=== PATIENT | male | born 1950 | race Caucasian/White ===

== ENCOUNTER 2021-02-15 19:51 | Emergency (ER) | payer OTHER, SELFPAY ==
[2021-02-15 19:52] VITALS: BP 165/105; PULSE 79; RESP 16; TEMP 36.8; O2SAT 97; BMI 29.7
--- NOTE | 2021-02-15 20:15 | CT_ITS ---
STUDY: CT BRAIN WITHOUT CONTRAST REASON FOR EXAM: Male, 70 years old. Fall trauma on ice head injury headache RADIATION DOSAGE (If Supplied By Facility): CTDIvol = ( 44.99 ) mGy, DLP = ( 812.98 ) mGycm TECHNIQUE: Transaxial CT imaging of the brain was performed without administration of intravenous contrast material. Individualized dose optimization techniques were used for this CT. COMPARISON: No relevant priors. FINDINGS: Brain parenchyma is without focal lesions, mass effect, acute intracranial hemorrhage, extra parenchymal fluid collections, hydrocephalus or herniation. There is mild chronic small vessel ischemic disease. The skull is intact. CT/Brain/Head without Contrast IMPRESSION: 1. No acute abnormality. 2. Mild chronic white matter ischemic disease. Electronically Signed: Kristina Fisher MD at 20:46 EST Tel , Service support ,
--- NOTE | 2021-02-15 20:15 | EKG12_ITS ---
Test Reason : HEAD INJ Blood Pressure : / mmHG Vent. Rate : 073 BPM Atrial Rate : 340 BPM P-R Int : 000 ms QRS Dur : 082 ms QT Int : 394 ms P-R-T Axes : 000 035 025 degrees QTc Int : 434 ms Accelerated Junctional rhythm Abnormal ECG Confirmed by JANEL CELAYA ([id number]), publication editor TIFFANY OJEDA ([id number]) on 02/16/2021 11:09:38 AM Referred By: RICHARD Confirmed By:JANEL CELAYA
--- NOTE | 2021-02-15 20:15 | RAD_ITS ---
INDICATION: chest pain EXAMINATION/TECHNIQUE: X-RAY - XR Chest 1 View COMPARISON: None. FINDINGS: LIFE-SUPPORT AND LINES: 1. None HEART AND VESSELS: The cardiac silhouette, pulmonary vasculature have normal appearance. No evidence of congestive failure. LUNGS AND PLEURAL SPACES: Lungs are clear. No focal infiltrate, consolidation or effusions. No evidence of pneumothorax. There is shallow inspiration and mild atelectasis MEDIASTINUM AND HILAR REGIONS: No masses adenopathy noted. No areas of calcification. Visualized upper airway is normal in position. BONY ELEMENTS: No acute bony changes noted. RAD/Chest 1 View (Portable) IMPRESSION: 1. No evidence of acute cardiopulmonary process. Shallow inspiration mild basilar atelectasis. Electronically Signed: Anish Almazan MD at 20:58 EST Tel , Service support ,
--- NOTE | 2021-02-15 20:16 | EDS_ITS ---
HPI History of Present Illness Chief Complaint: Head Injury Informant: patient, spouse/S.O. and EMS Onset/Context/Timing Onset: Today and Hours Location: Head injury with LOC and amnesia. Current Severity: Mild Maximum Severity: Moderate Associated Symptoms Associated Symptoms: Positive for Loss of consciousness and Amnesia; Negative for Parasthesias, Weakness, Loss of function and Inability to ambulate Narrative Narrative: 70-year-old male has had bilateral hip replacements. Denies chronic medical problems. Today was resting adult hockey games. He had done 3 games. During the fourth game he was found down on the ice. It was unwitnessed. He is amnestic to the event. is with him now but she wasn't at the game. Paramedics and people at the ice arena never actually saw him go down. Patient denies any recent illness. He denies any nausea vomiting or diarrhea recently. He denies any syncope or palpitations. He has never had a syncopal event. Prior similar symptoms: No Recent Illness/Hospitalization: No PFSH PFSH Medical History Hip replacement planned Home Medications NK 02/15/21 [History Last Taken Unknown] Allergy/AdvReac Type Severity Reaction Status Date / Time No Known Allergies Allergy Verified 02/15/21 19:52 Social History Smoking Status: Never smoker ROS ROS ED ROS Narrative Denies recent illness. Review of Systems ROS Unobtainable: Denies due to encephalopathy Constitutional Constitutional ED: Denies fever(s) Eyes Eyes: Denies change in vision ENT ENT ED: Denies ear pain Cardiovascular Cardiovascular: Denies chest pain Respiratory/Chest Respiratory/Chest: Denies dyspnea Gastrointestinal Gastrointestinal: Denies abdominal pain, diarrhea, nausea or vomiting Genitourinary Genitourinary ED: Denies dysuria Musculoskeletal Musculoskeletal: Denies myalgias Integumentary Denies rash Neurologic Neurologic: Denies headache(s) Psychiatric Psychiatric: Denies depression Endocrine Endocrinology: Denies polyuria Hematologic/Lymphatic Hematologic/Lymphatic: Denies easy bruising Allergic/Immunologic Allergic/Immunologic ED: Denies urticaria EXAM Physical Exam Narrative Exam Narrative: 70-year-old male showing a stated age vital signs are stable afebrile. Pulse ox 97% on room air no signs hypoxia. HEENT exam is an abrasion/superficial laceration to the right cheek. Pupils round reactive light. Extra motions are intact. Dentition intact. TMs are unremarkable. There is no signs of trauma on his scalp or back of his head. C-spine trachea nontender normal range of motion to his neck. Lungs are clear. Heart regular rate and rhythm no murmur. Chest wall nontender. Abdomen soft nontender. Pelvic girdle intact. Patient moving all 4 extremities are nontender. There are neurovascularly intact with normal range of motion and psychotherapist counselor strength. Back nontender. Neurologically he is amnestic to the event but he is awake and alert. He is answering questions. His GCS is 15. He knows day, month, year and president. He is acting concussed.. Const Vital Signs: 02/15/21 19:52 02/15/21 19:57 02/15/21 20:23 Temperature 98.3 F Temperature Source Oral Pulse Rate 79 Respiratory Rate 16 Respiratory Effort Normal Non-Labored Respiratory Depth Normal Respiratory Pattern Normal Blood Pressure 165/105 H Blood Pressure Mean 125 Pulse Ox 97 Oxygen Delivery Method Room Air Room Air 02/15/21 20:59 02/15/21 22:02 Temperature Temperature Source Pulse Rate 70 73 Respiratory Rate 16 19 H Respiratory Effort Respiratory Depth Respiratory Pattern Blood Pressure 149/108 H 152/109 H Blood Pressure Mean 121 123 Pulse Ox 97 96 Oxygen Delivery Method Room Air Room Air Positive well nourished and well developed; Negative for obese, cachectic, contractures or unkempt General Appearance ED: well developed and NAD; Negative for unkempt, cachectic or contractures Nutritional Appearance: Negative for cachectic or obese HEENT Reports TM's clear trauma and tenderness Tympanic Membrane ED: Yes TM's clear Eyes PERRL and EOMs intact bilaterally Neck full ROM General: Negative for tenderness Chest Wall inspection of chest normal and palpation of chest normal Resp normal respiratory effort and clear to auscultation bilaterally Auscultation: Negative for rales, rhonchi or wheezes Cardio regular rhythm, S1 normal heart sound, S2 normal heart sound and no murmurs Rate: regular rate GI normal to inspection, nondistended, normoactive bowel sounds, non-tender, non- distended and no masses Auscultation: normoactive bowel sounds Palpation: soft; Negative for tender or guarding Back/Spine normal to inspection and no thoracic nor lumbar tenderness General Back: Negative for CVA tenderness Extremity normal to inspection and full ROM General Extremety ED: Negative for deformity, edema or tenderness General Extremity: Negative for deformity or edema Neuro oriented x3, CN's II-XII intact bilaterally, moves all extremities and no focal motor deficits [place] Coma Scale: document GCS findings Spontaneous Obeys Commands Oriented 15 Sensorium / Orientation: alert, oriented to person, oriented to place and oriented to time; Negative for lethargic or stuporous Motor Exam: strength 5/5 throughout Psych mental status grossly normal and thought process normal Appearance: Negative for unkempt Skin no rashes or lesions noted Skin Narrative: Abrasion right cheek. MDM MDM MDM Narrative Medical decision making narrative: 70-year-old male was wrestling hockey games when he went down. It was unwitnessed. He has an obvious head injury and is concussed but the question is that something happened to him before he went down. He has a normal exam will be worked up for possible syncope and head injury with CAT scan and cardiac work-up. Repeat exam patient is doing well at 1020. Exam is normal. Neurologic exam is normal. He and I and his discussed his test results. Currently he is in a sinus rhythm on the monitor. He also got additional information from the score keeper at the ice rink and he was skating backwards and this happened and was tripped accidentally when he got caught up with another player. So does not seem like he had a syncopal episode at all, he just fell to the ice and got knocked out. We discussed head injury instructions. Lab Data Attestation: I reviewed the patient's lab results. Lab results narrative: CBC White count of 6. Hemoglobin 15. Electrolytes gap of 6 BUN 22 creatinine 0.86. Glucose 112. Troponin XIX. Labs: Laboratory Results - last 24 hr 02/15/21 02/15/21 20:00 20:00 WBC 6.8 RBC 4.94 Hgb 15.0 Hct 43.9 MCV 88.9 MCH 30.4 MCHC 34.2 RDW Std Deviation 38.7 RDW Coeff of [place] 11.9 Plt Count 231 MPV 10.0 Immature Gran % (Auto) 0.300 Neut % (Auto) 55.9 Lymph % (Auto) 30.4 [place] % (Auto) 11.1 H Eos % (Auto) 1.9 Baso % (Auto) 0.4 Absolute Neuts (auto) 3.8 Absolute Lymphs (auto) 2.05 Nucleated RBC % 0 Sodium 139 Potassium 4.0 Chloride 108 H Carbon Dioxide 25.0 Anion Gap 6 BUN 22 H Creatinine 0.86 Estim Creat Clear Calc 83.70 Est GFR (MDRD) Af Amer 114 Est GFR (MDRD) Non-Af 94 BUN/Creatinine Ratio 25.7 H Glucose 112 H Calcium 8.9 Troponin I High Sens 19 Radiography Diagnostic Testing: Clinical Impression(s) from Imaging Studies Brain CT 02/15/21 20:15 IMPRESSION: 1. No acute abnormality. 2. Mild chronic white matter ischemic disease. Electronically Signed: Kirstina Fisher MD at 20:46 EST Tel , Service support , Chest X-Ray 02/15/21 20:15 IMPRESSION: 1. No evidence of acute cardiopulmonary process. Shallow inspiration mild basilar atelectasis. Electronically Signed: Anish Almazan MD at 20:58 EST Tel , Service support , Chest x-ray portable 1 view shows no acute abnormality. Normal cardiac silhouette and mediastinum. Interpreted by myself and radiologist. CT of the brain read by the radiologist and reviewed by me shows no acute abnormality. EKG Initial EKG: Attestation: I personally reviewed and interpreted this EKG as follows: Interpretation: No Acute Injury Pattern Comments: Junctional rhythm rate of 73 no acute signs of MS or ischemia. Prior EKG tracings: not available for review Discharge Plan Triage Chief Complaint: Head Injury ED Provider: Neil Deng Dx/Rx/DC Orders Clinical Impression: Concussion, Abrasion of face Instructions: ED Concussion Prescriptions: No Action NK RF: 0 Primary Care Provider: Napoleon Fontanez Referrals: Napoleon Fontanez MD [Primary Care Provider] - 10-14 Days if not better Activity Restrictions/Additional Instructions: Plenty of fluids and rest. Tylenol and Motrin for headaches. Follow-up with your doctor in the next several weeks if not consistently improving. Off work tomorrow and just take it easy at home. Hold off next weekend and see how you are feeling in 2 weeks. Disposition Disposition: Home, Self Care
[2021-02-15 20:46] LABS: Absolute Lymphocyte Count 2.05 X10^3/uL (0.83-4.51); Absolute Neutrophil Count 3.8 X10^3/uL (2.0-7.7); Basophil# 0.03 X10^3/uL; Basophil% 0.4 % (0-1); Eosinophil# 0.13 X10^3/uL; Eosinophils% 1.9 % (0-5); Hematocrit 43.9 % (40-54); Lymphocyte # 2.05 X10^3/ul (0.83-4.51); Lymphocyte % 30.4 % (19-41); Mean Corp Hgb Conc 34.2 g/dL (32-36); Mean Corpuscular Hgb 30.4 pg (27.0-32.0); Mean Corpuscular Volume 88.9 fL (80-94); Monocyte# 0.75 X10^3/uL; Monocyte% 11.1 % (0-10); NRBC Flagged by Analyzer 0 % (0-5); Neutrophil # 3.77 X10^3/uL (2.7-7.7); Neutrophil % 55.9 % (47-70); Platelet Count 231 K/mm3 (150-450); RBC Distribution Width CV 11.9 % (11.6-14.6); RBC Distribution Width SD 38.7 fl (35.1-43.9); Red Blood Count 4.94 M/mm3 (4.6-6.2); White Blood Count 6.8 K/mm3 (4.4-11.0)
[2021-02-15 20:59] VITALS: BP 149/108; PULSE 70; RESP 16; O2SAT 97
[2021-02-15 21:00] LABS: Anion Gap 6 (5-15); BUN 22 mg/dL (7-18); BUN/Creat Ratio 25.7 RATIO (10-20); Calcium,Total 8.9 mg/dL (8.5-10.1); Chloride 108 mmol/L (98-107); Creatinine, Serum 0.86 mg/dL (0.70-1.30); EST Glomerular Filtration Rate 94 mL/min (>60); Est Glom Filt Rate - Afr Amer 114 mL/min (>60); Glucose 112 mg/dL (74-106); Sodium Level 139 mmol/L (136-145); Troponin-I HS 19 pg/mL (3.0-78.0)
[2021-02-15 22:02] VITALS: BP 152/109; PULSE 73; RESP 19; O2SAT 96
[2021-02-15 22:39] VITALS: BP 161/101; PULSE 72; RESP 20; O2SAT 96
== END 2021-02-15 22:41 | disposition home or self-care (01) ==
PROVIDERS: Emergency Provider Emergency Medicine; PCP Family Medicine
DX: S00.81XA Abrasion of other part of head, initial encounter (principal); W00.0XXA Fall on same level due to ice and snow, initial encounter; Z96.643 Presence of artificial hip joint, bilateral
CPT/HCPCS: 70450; 71045; 80048; 84484; 85025; 93005; 99285; A4216

== ENCOUNTER 2021-12-12 16:01 | Emergency (ER) | payer OTHER, SELFPAY ==
[2021-12-12 16:03] VITALS: BP 156/97; PULSE 85; RESP 16; TEMP 36.7; O2SAT 98; BMI 27.2
--- NOTE | 2021-12-12 17:04 | CT_ITS ---
INDICATION: left rib injury EXAMINATION: CT CHEST WITHOUT CONTRAST - CT Chest W/O Contrast Injection TECHNIQUE: Helically acquired images were obtained of the chest. A radiation dose optimization technique was used for this scan. IV Contrast dosage and agent: None. COMPARISON: None. FINDINGS: LUNGS, PLEURA AND LARGE AIRWAYS: No masses, consolidation, or edema. No pleural effusion or thickening. No pneumothorax. THYROID: No thyroid lesions. HEART AND PERICARDIUM: Heart size is normal. No pericardial effusion. CORONARY ARTERIES: Coronary artery calcification is seen. VESSELS: Thoracic aorta is not dilated. MEDIASTINUM AND DANO: No mediastinal or hilar adenopathy. Esophagus is unremarkable. No hiatal hernia. UPPER ABDOMEN: No acute pathology. BONES: Acute nondisplaced fracture the lateral left seventh rib. CT/Chest without Contrast IMPRESSION: Acute nondisplaced fracture the lateral left seventh rib. No pneumothorax or hemothorax. Electronically Signed: Anish Mansfield MD at 17:50 EDT ,
--- NOTE | 2021-12-12 17:05 | EDS_ITS ---
HPI HPI - Fall History of Present Illness Chief Complaint: Fall Informant: patient Occured/Mechanism Occurred: Today Narrative Narrative: Fall left rib injury around noon today. 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 Mild pain initially, at home had a coughing episode increasing pain. No head injuries. No daily medicines no anticoagulants. He states about 10 years ago had fall off a month Nikhil with significant bruising at that time. Has had hip surgeries does have incentive spirometer is at home. No allergies. Tolerated [place] in the past. Prior similar symptoms: Yes PFSH PFSH Medical History Hip replacement planned Home Medications hydrocodone-acetaminophen 5-325mg 5mg-325mg 1 tab PO Q6H PRN pain 3 days #12 tabs 12/12/21 [Rx Last Taken Unknown] Allergy/AdvReac Type Severity Reaction Status Date / Time No Known Allergies Allergy Verified 12/12/21 16:02 Social History Smoking Status: Never smoker ROS ROS ED Constitutional Constitutional ED: Denies chills, fever(s) or sweats Eyes Eyes: Denies change in vision ENT ENT ED: Denies dysphagia or sore throat Cardiovascular Cardiovascular: Reports other Details: Left rib pain ; Denies chest pain, leg edema, palpitations or racing heartbeat Respiratory/Chest Respiratory/Chest: Denies cough, dyspnea or dyspnea on exertion Gastrointestinal Gastrointestinal: Denies abdominal pain, diarrhea, nausea or vomiting Genitourinary Genitourinary ED: Denies dysuria, hematuria or urinary frequency Musculoskeletal Musculoskeletal: Denies back pain, extremity pain or neck pain Integumentary Denies rash or wounds Neurologic Neurologic: Denies headache(s), paresthesias or weakness EXAM Physical Exam Const Vital Signs: 12/12/21 16:03 12/12/21 16:10 12/12/21 18:02 Temperature 98.1 F Temperature Source Temporal Pulse Rate 85 69 Respiratory Rate 16 15 Respiratory Effort Normal Non-Labored Respiratory Depth Normal Respiratory Pattern Normal Blood Pressure 156/97 H Blood Pressure Mean 116 Pulse Ox 98 99 Oxygen Delivery Method Room Air Room Air Room Air Positive well nourished and well developed General Appearance ED: well developed and NAD HEENT Reports moist mucous membranes normocephalic and atraumatic Eyes PERRL, EOMs intact bilaterally and conjunctivae normal General Eye ED: Yes normal appearance of both eyes Neck no lymphadenopathy and supple General: Negative for tenderness Chest Wall Chest Narrative: Tender palpation left lateral ribs with no crepitus, no ecchymosis. Chest: Negative for tenderness Resp normal respiratory effort and normal air movement Resp Narrative: Symmetric breath sounds. Effort and Inspection: symmetric chest movement; Negative for respiratory distress Cardio regular rate, regular rhythm and no murmurs Peripheral Pulses: pulses 2+ throughout GI normal to inspection, nondistended, normoactive bowel sounds and non-tender Palpation: Negative for guarding or rebound tenderness present Back/Spine no CVA tenderness and no thoracic nor lumbar tenderness Extremity normal to inspection General Extremety ED: Negative for edema or tenderness General Extremity: Negative for edema Neuro oriented x3 and no sensory deficits noted Sensorium / Orientation: awake and alert Skin no rashes or lesions noted and no wounds MDM MDM MDM Narrative Medical decision making narrative: Patient treated with [place] for which he is tolerated in the past. CT scan chest obtain notes nondisplaced acute left lateral seventh rib fracture there is no pneumothorax. Discussed findings with the patient. He has incentive spirometer at home for which to use every 2 hours while awake prescription for [place] use as needed he has stool softeners at home. He will follow-up with his PCP for refill medication for continued symptom control as needed. All questions were answered. Radiography Diagnostic Testing: Clinical Impression(s) from Imaging Studies Chest CT 12/12/21 17:04 IMPRESSION: Acute nondisplaced fracture the lateral left seventh rib. No pneumothorax or hemothorax. Electronically Signed: Anish Mansfield MD at 17:50 EDT , Discharge Plan Triage Chief Complaint: Fall ED Provider: Ottoniel Arrieta Dx/Rx/DC Orders Clinical Impression: Left rib fracture, Fall Instructions: ED Rib Fracture Prescriptions: New hydrocodone-acetaminophen 5-325 mg tablet 1 tab PO Q6H PRN (Reason: pain) 3 Days Qty: 12 0RF Primary Care Provider: Kenton Torres Referrals: Kenton Torres MD [Primary Care Provider] - Activity Restrictions/Additional Instructions: Single nondisplaced left seventh rib fracture on CT. Take pain medicines as prescribed. Continue stool softeners. Use your incentive spirometer every 2 hours while awake that you have at home. Disposition Disposition: Home, Self Care Discharge Date/Time: 12/12/21 18:16
[2021-12-12] MEDS: HYDROcodone Bitartrate/Apap 5/325 Tablet PO (17:18)
[2021-12-12 18:02] VITALS: PULSE 69; RESP 15; O2SAT 99
== END 2021-12-12 18:16 | disposition home or self-care (01) ==
PROVIDERS: Emergency Provider Emergency Medicine; PCP Family Medicine; Visit Provider Emergency Medicine
DX: S22.32XA Fracture of one rib, left side, initial encounter for closed fracture (principal); W19.XXXA Unspecified fall, initial encounter
CPT/HCPCS: 71250; 99283